=== PATIENT | male | born 1970 | race Caucasian/White ===

== ENCOUNTER 2019-12-22 18:09 | Emergency (ER) | payer OTHER ==
[~2019-12-22] VITALS: Ht 182.9 cm; Wt 87.3 kg
[2019-12-22] MEDS ORDERED: OLAN2.5T3 (18:53)
[2019-12-22] MEDS ORDERED: ESCI5TAB (18:53)
--- NOTE | 2019-12-22 19:00 | NUR ---
ASSISTED PT INTO GREEN SCRUBS WITH [employer]. PT COMPLIANT AND ALL PERSONAL BELONGINGS REMOVED FROM PT AND LOCKED IN BOTH THE SAFE AND AMBULANCE BAY LOCKERS. PT GIVEN 2 WARM BLANKETS AND IS NOW LAYING CALMLY IN BED WITHOUT ISSUE.
[2019-12-22 19:16] LABS: URINE AMPHETAMINE SCREEN NEGATIVE (Neg); URINE BARBITUATE SCREEN NEGATIVE (Neg); URINE BENZODIAZEPINES SCREEN NEGATIVE (Neg); URINE CANNABINOID SCREEN NEGATIVE (Neg); URINE COCAINE SCREEN NEGATIVE (Neg); URINE METHADONE SCREEN NEGATIVE (Neg); URINE OPIATE SCREEN NEGATIVE (Neg); URINE PHENCYCLIDINE SCREEN NEGATIVE (Neg)
[2019-12-22 19:26] LABS: BASOPHILS % (AUTO) 0.6 % (0-1); EOSINOPHILS # (AUTO) 0.2 X10'3 (0-0.9); EOSINOPHILS % (AUTO) 2.6 % (0-6); HEMOGLOBIN 16.3 g/dl (14.0-17.9); LYMPHOCYTES # (AUTO) 2.9 X10'3 (1.1-4.8); LYMPHOCYTES % (AUTO) 40.9 % (21-51); MEAN CORPUSCULAR HEMOGLOBIN 28.2 PG (27.0-31.0); MEAN CORPUSCULAR HGB CONC 33.3 g/dL (33.0-36.5); MEAN CORPUSCULAR VOLUME 84.6 FL (78-98); MEAN PLATELET VOLUME 8.6 FL (7.4-10.4); MONOCYTES # (AUTO) 0.5 X10'3 (0-0.9); MONOCYTES % (AUTO) 6.8 % (2-12); NEUTROPHILS # (AUTO) 3.5 X10'3 (1.8-7.7); NEUTROPHILS % (AUTO) 49.1 % (42-75); PLATELET COUNT 208 X10'3 (140-440); RED BLOOD COUNT 5.79 X10'6 (4.70-6.10); RED CELL DISTRIBUTION WIDTH 16.6 % (11.5-14.5); WHITE BLOOD COUNT 7.2 X10'3 (4.5-11.0)
[2019-12-22 19:31] LABS: ALANINE AMINOTRANSFERASE 26 U/L (12-78); ALBUMIN 4.2 G/DL (3.4-5.0); ALBUMIN/GLOBULIN RATIO 1.1 (1.1-1.5); ALKALINE PHOSPHATASE 83 IU/L (46-116); ANION GAP 9 (8-16); ASPARTATE AMINO TRANSFERASE 30 U/L (10-37); BILIRUBIN,TOTAL 0.4 MG/DL (0.1-1.0); BLOOD UREA NITROGEN 5 MG/DL (7-18); BUN/CREATININE RATIO 5.6 (5.4-32.0); CALCIUM 8.9 MG/DL (8.5-10.1); CHLORIDE 110 MMOL/L (99-107); GLUCOSE 82 MG/DL (70-104); POTASSIUM 3.5 MMOL/L (3.5-5.1); SODIUM 149 MMOL/L (135-145); eGFR 89 ML/MIN
[2019-12-22 19:33] LABS: ACETAMINOPHEN < 2.0 UG/ML (10-30)
--- NOTE | 2019-12-23 04:23 | NUR ---
instructed sitter not to awaken the patient for vital signs.
--- NOTE | 2019-12-23 07:08 | NUR ---
SPOKE TO [facility] OFFICE PT IS CURRENTLY BEING SEEN BY DR. SILVESTRE; [facility] WILL SEND CURRENT MED SHEET PT GIVEN WARM BLANKET CURRENTLY SLEEPING ON HIS LEFT SIDE. RR EVEN AND UNLABORED. NO DISTRESS NOTED OR VERBALIZED AT THIS TIME.
[2019-12-23 07:16] LABS: CLARITY,URINE CLEAR (Clear); COLOR,URINE STRAW (Yellow); GLUCOSE, URINE NEGATIVE (Neg); KETONES,URINE NEGATIVE (Neg); LEUKOCYTE ESTERASE ,URINE NEGATIVE (Neg); NITRITES, URINE NEGATIVE (Neg); OCCULT BLOOD,URINE NEGATIVE (Neg); PROTEIN,URINE NEGATIVE (Neg); UROBILINOGEN,URINE 0.2 E.U/dL (0.2-1.0)
[2019-12-23 07:18] LABS: UA COLLECTION TYPE CLN CATCH MIDSTREAM
--- NOTE | 2019-12-23 07:30 | NUR ---
PT CONTINUES TO REST ON HIS SIDE, EYES CLOSED, RR RATE EVEN AND UNLABORED.
[2019-12-23] MEDS ORDERED: ESCITALOPRAM OXALATE 5 MG TABLET PO SCH (08:00)
--- NOTE | 2019-12-23 09:00 | NUR ---
PT WOULD NOT WAKE UP TO TAKE HIS LEXAPRO. PT CAME IN INTOXICATED AND CONTINUES TO SLEEP.
--- NOTE | 2019-12-23 09:22 | NUR ---
PT CONTINUES TO SLEEP; AMBULATES TO BR THEN RETURNS TO BED. RR EVEN AND UNLABORED.
--- NOTE | 2019-12-23 10:31 | NUR ---
PT CONTINUES TO SLEEP; RR EVEN AND UNLABORED. NO S/S OF DISTRESS.
--- NOTE | 2019-12-23 11:06 | NUR ---
UNABLE TO COMPLETE ASSESSMENT AND TREATMENT QUESTIONS IN INTERVENTIONS DUE TO THE PT HAS BEEN SLEEPING SINCE HIS TRANSFER THIS MORNING TO THIS UNIT.
--- NOTE | 2019-12-23 12:39 | NUR ---
RELIEVING RN FOR LUNCH BREAK, PT IS SLEEPING, RESP EVEN AND UNLABORED
--- NOTE | 2019-12-23 12:57 | NUR ---
PT IS EATING LUNCH, ANNALISE WELL, NO N/V
--- NOTE | 2019-12-23 14:02 | NUR ---
PT WILL NOT WAKE UP TO DO INTERVENTIONS 0R MENTAL HEALTH ASSESSMENT. PT CONTINUES TO SLEEP. RR EVEN AND UNLABORED.
--- NOTE | 2019-12-23 15:42 | NUR ---
PT HAS BEEN UP FOR MEALS AND THEN GOES BACK TO SLEEP. HE IS [place]. NO COMPLAINTS AT THIS TIME.
--- NOTE | 2019-12-23 16:03 | NUR ---
PT GIVEN A SNACK AND MILK. UP TO BR. HE REMAINS QUIET, CALM AND COOPERATIVE.
--- NOTE | 2019-12-23 16:08 | NUR ---
PT IN BR COMPLETING AM HYGIENE.
--- NOTE | 2019-12-23 17:38 | NUR ---
PT CONTINUES TO REST ON HIS BED; HIS 5[address] WAS UPHELD SEE [facility] PN IN CHART IN OVF. PT IS CALM AND COOPERATIVE.
[2019-12-23 17:40] VITALS: BP 137/94
--- NOTE | 2019-12-23 18:28 | NUR ---
Assumed care of patient, pt. laying in bed appears to be sleeping, rr even and unlabored.
[2019-12-23] MEDS ORDERED: traZODone 150mg tablet PO SCH (20:00)
--- NOTE | 2019-12-23 20:30 | NUR ---
1:1 completed at bedside, pt. endorses S/I over the past couple of days with a plan to cut his wrists. Scores as a high suicide risk, reported to Dr. Shankar. He denies any H/I, A/V/BUNN, and does not make any delusional statements. He reports he has been living in his own trailer in [place], however often gets lonely and he recently had a fight with his girlfriend. Pt. states, "I asked for help and ended up here." Pt. also reports that he drinks alcohol often and does not ever suffer from s/s of withdrawal. No s/s of withdrawal exhibited, will monitor.
[2019-12-23] MEDS ORDERED: OLANZapine 2.5MG tablet PO SCH (21:00)
--- NOTE | 2019-12-23 22:30 | NUR ---
Pt. up eating an HS snack in bed at this time, rr even and unlabored.
--- NOTE | 2019-12-23 23:05 | NUR ---
Client to be admitted to [facility] for Depression and Suicidal Ideation per Yola Cloud NP/ Yoni Segundo MD.
--- NOTE | 2019-12-23 23:25 | NUR ---
Pt. will discharge to [facility]. Belongings with patient. Report given to Lucila Simmons RN. Tech to accompany pt.
== END 2019-12-23 23:34 ==
LOC: EDBD 18:10 → ER 18:10 → UNDOADMIN 12-23 23:00 → ADULT MH 12-23 23:00
DX: R45.851 Suicidal ideations (principal); Z79.899 Other long term (current) drug therapy
CPT/HCPCS: 36415; 80053; 80305; 80320; 80329; 81003; 85025; 99285